=== PATIENT | female | born 1960 | race Two or more races ===

== ENCOUNTER 2021-10-17 11:50 | Outpatient (REF) | payer MEDICARE, MEDICAID, SELFPAY ==
[2021-10-17 13:22] LABS: T4 Thyroxine 6.8 ug/dL (4.5-12.0); Thyroid Stimulating Hormone 0.56 uIU/mL (0.32-4.0)
[2021-10-17 13:45] LABS: Erythrocyte Sedimentation Rate 23 MM/HR (0-20)
[2021-10-18 07:26] LABS: Estimated Average Glucose 240 mg/dL
[2021-10-24 05:32] LABS: Aldolase 5.5 U/L (<=8.1)
== END 2021-10-17 11:51 | disposition home or self-care (01) ==
LOC: HO.LAB 11:50
PROVIDERS: Visit Provider Psychiatry & Neurology Neurology
DX: G72.9 Myopathy, unspecified (principal)
CPT/HCPCS: 36415; 82085; 82550; 83036; 84436; 84443; 85652